=== PATIENT | female | born 1995 | race Caucasian/White ===

== ENCOUNTER 2024-04-12 21:01 | Emergency (ER) | payer OTHER ==
[~2024-04-12] VITALS: Ht 165.1 cm; Wt 108.9 kg
[2024-04-12] MEDS ORDERED: AMLO-212 PO (21:20)
[2024-04-12] MEDS ORDERED: ONDANSETRON ODT 4 MG TAB.RAPDIS ONE (21:34)
[2024-04-12] MEDS ORDERED: IBUPROFEN 400 MG TABLET ONE (21:35)
[2024-04-12] MEDS ORDERED: HYDROMORPHONE 1 MG/1 ML DISP.SYRIN ONE (21:35)
[2024-04-12] MEDS: ONDANSETRON ODT 4 MG TAB.RAPDIS SL ONE (21:39)
[2024-04-12] MEDS: HYDROMORPHONE 1 MG/1 ML DISP.SYRIN IM ONE (21:39)
[2024-04-12] MEDS: IBUPROFEN 400 MG TABLET PO ONE (21:40)
[2024-04-12] MEDS ORDERED: HYDR-3980 PO (22:18)
[2024-04-12] MEDS ORDERED: ONDA4TAB11 PO (22:18)
[2024-04-12] MEDS ORDERED: CYCL10TA9 PO (22:18)
[2024-04-12 22:43] VITALS: BP 133/80; TEMP 98; O2SAT 98
== END 2024-04-12 22:43 | disposition home or self-care (01) ==
LOC: ER 21:01
DX: S80.11XA Contusion of right lower leg, initial encounter (principal); S80.12XA Contusion of left lower leg, initial encounter; E66.9 Obesity, unspecified; Z68.39 Body mass index [BMI] 39.0-39.9, adult; Z90.49 Acquired absence of other specified parts of digestive tract; Z79.899 Other long term (current) drug therapy; X58.XXXA Exposure to other specified factors, initial encounter; Y93.01 Activity, walking, marching and hiking; Y92.410 Unspecified street and highway as the place of occurrence of the external cause; Y99.8 Other external cause status
CPT/HCPCS: 99283; 73590 ×2; 96372; J1171; A4606; A4663; Q0162